=== PATIENT | female | born 1985 | race Caucasian/White ===

== ENCOUNTER 2020-05-07 13:01 | Emergency (ER) | payer MEDICARE, MEDICAID, SELFPAY ==
--- NOTE | ~2020-05-07 | XR_ITS ---
EXAMINATION: XR chest 1V portable INDICATION: Epigastric abdominal pain TECHNIQUE: Portable AP chest at 1531 hours COMPARISON: None available FINDINGS: The lungs are free of acute opacities. There is no pleural effusion or pneumothorax. The ca rdiomediastinal silhouette is normal. Tubing from a right internal jugular Port-A-Cath ends with its tip in the midsuperior vena cava. The chest wall portion of the port is not definitely seen. Cholecys tectomy clips are noted in the right upper quadrant. IMPRESSION: 1. No acute cardiopulmonary abnormality. Reviewed, dictated and finalized at location [facility]. [facility]
--- NOTE | ~2020-05-07 | CT_ITS ---
EXAMINATION: CT abdomen pelvis wo con DATE: 05/07/2020 16:28 INDICATION: Abdominal pain TECHNIQUE: Computed tomography (CT) of the abdomen and pelvis was performed without intravenous contr ast. Automated exposure control and iterative reconstruction technique were employed. The dose-length product was 774.85 mGy-cm. COMPARISON: None FINDINGS: Lung bases are clear. Heart size is normal. No pericardial or pleural effusion. Cholecystectomy clips the gallbladder fossa. Geographic bands of subcapsular decreased attenuation along the posterior mar gin of segment 6 of the liver and inferomedial margin of segment 5 of the liver most likely represent ing hepatic steatosis. Spleen, bilateral adrenal glands and kidneys are normal. There is dilation of the main pancreatic duct with multiple tiny foci of dystrophic calcification and atrophy of the surro unding pancreatic parenchyma consistent with sequela of chronic pancreatitis. There is an approximate ly 1.8 cm diameter nodular region of soft tissue density at the head of the pancreas likely represent ing residual spared pancreatic tissue. No surrounding inflammatory stranding to suggest ongoing acute interstitial pancreatitis. The appendix is not visualized. No pericecal inflammatory change to sugge st acute appendicitis. No bowel obstruction. Bladder, anteverted uterus and bilateral adnexa are unre markable. No free intraperitoneal gas or fluid. No pathologically enlarged abdominal or pelvic lympha denopathy. Multiple small nodular densities in the subcutaneous fat at the left and right anterolater al lower abdominal wall likely representing injection granulomata/scarring related to subcutaneous in jections. Correlate with clinical history. Bones are unremarkable. IMPRESSION: 1. No acute intra-abdominal/pelvic process. 2. Stigmata of chronic pancreatitis including parenchymal atrophy and dystrophic calcifications as we ll as dilation of the main pancreatic duct. A 1.8 cm nodular density at the region of the head of the pancreas likely represents peripancreatic tissue but would correlate with prior outside imaging to e xclude less likely pancreatic neoplasm. Could consider further evaluation with multiphase pre and pos tcontrast MRI of her given the relative paucity of an additional normal pancreatic parenchyma for com parison the most useful assessment would be for interval change related to prior imaging. Reviewed, dictated and finalized at location A. [employer] IMPRESSION: 1. No acute intra-abdominal/pelvic process. 2. Stigmata of chronic pancreatitis including parenchymal atrophy and dystrophi c calcifications as well as dilation of the main pancreatic duct. A 1.8 cm nodu lar density at the region of the head of the pancreas likely represents peripan creatic tissue but would correlate with prior outside imaging to exclude less l ikely pancreatic neoplasm. Could consider further evaluation with multiphase pr e and postcontrast MRI of her given the relative paucity of an additional lorena l pancreatic parenchyma for comparison the most useful assessment would be for interval change related to prior imaging.
--- NOTE | 2020-05-07 13:27 | ECG_ITS ---
Measurements Intervals [place] Rate: 81 P: 48 ID: [id number] QRS: 7 QRSD: 73 T: 19 QT: 364 QTc: 425 Interpretive Statements SINUS RHYTHM DELAYED PRECORDIAL R/S TRANSITION BORDERLINE ECG Electronically Signed On 05-07-2020 13:39:32 [employer]TAIN WAITER by Raymundo Monique D.O.
[2020-05-07 13:36] VITALS: BP 138/87; PULSE 85; RESP 16; TEMP 36.2; O2SAT 98
--- NOTE | 2020-05-07 13:40 | PC.NURSE ---
Patient walked up to intake desk without difficulty, asking how long she has to wait in the waiting room that her stomach was hurting. patient informed that we cannot give wait times for rooms but that her tests were in progress. Patient then states that she could pass out, patient then placed in wheelchair in the locked postion and told to let RN know prior to getting up or walking at all. patient sitting in wheelchair at this time in no distress.
[2020-05-07 13:58] LABS: Glucose Point of Care 369 (65-105)
[2020-05-07 14:02] LABS: Basophils Percent Auto 0.5 % (0.2-1.2); Eosinophils Percent Auto 0.7 % (0-4.4); Hematocrit 34.1 % (37.0-47.0); Hemoglobin 11.2 g/dL (12.0-15.0); Immature Granulocyte Absolute 0.01 K/mm3 (0.00-0.031); Immature Granulocyte Percent A 0.2 % (0-0.5); Lymphocytes Percent Auto 32.6 % (18.3-44.2); Mean Corpuscular HGB Conc 32.8 g/dl (32-36); Mean Corpuscular Hemoglobin 31.5 pg (26-34); Mean Corpuscular Volume 96.1 fl (80-100); Mean Platelet Volume 11.6 fl (7.4-10.4); Monocytes Absolute Auto 0.6 K/mm3 (0.1-0.6); Monocytes Percent Auto 9.6 % (2.6-8.5); Neutrophils Absolute Auto 3.3 K/mm3 (1.3-6.7); Neutrophils Percent Auto 56.4 % (45.5-73.1); Platelet Count Result 184 k/mm3 (150-375); Red Blood Count 3.55 M/mm3 (4.2-5.4); Red Cell Distribution Width 11.9 % (11.5-14.5); White Blood Count 5.8 K/mm3 (4.5-10.0)
[2020-05-07 14:06] LABS: Add Urine Microscopic? YES; Appearance Urine Clear (Clear); Bilirubin Urine Negative (Negative); Blood Urine Negative (Negative); Color Urine Straw (Yellow); Glucose Urine UA 3+ mg/dL (Negative); Ketones Urine Negative (Negative); Leukocyte Esterase Ur Negative LEU/UL (Negative); Nitrate Urine Negative (Negative); Protein Urine Negative (Negative); RBC Urine 0-2 /hpf (0-2); Specific Grav Ur 1.014 (1.001-1.035); Squamous Epithelial Cell Urine Rare /hpf (Few); Urobilinogen Urine Negative mg/dL (<2.0); WBC Urine 0-3 /hpf
[2020-05-07 14:14] LABS: Alanine Aminotransferase 23 U/L (4-35); Albumin Level 3.8 g/dL (3.5-5.1); Alkaline Phosphatase 116 U/L (38-126); Anion Gap 7 mmol/L (8-16); Aspartate Amino Transferase 24 U/L (14-36); Bilirubin,Total 0.2 mg/dL (0.2-1.3); Blood Urea Nitrogen 7 mg/dL (7-17); Calcium 9.1 mg/dL (8.4-10.2); Carbon Dioxide 25 mmol/L (22-30); Chloride 105 mmol/L (98-107); Estimated CRCL calculation 130 ml/min; Estimated Glomerular Filt Rate > 60; Glucose 378 mg/dL (65-105); Potassium 4.2 mmol/L (3.4-5.0); Sodium 137 mmol/L (137-145)
[2020-05-07 14:15] LABS: Lipase < 10 U/L (23-300)
[2020-05-07 15:31] VITALS: BP 151/91; PULSE 81; RESP 18; O2SAT 96
[2020-05-07 16:03] LABS: Magnesium 1.4 mg/dL (1.6-2.3); Phosphorus 2.5 mg/dL (2.5-4.5)
--- NOTE | 2020-05-07 16:10 | PC.NURSE ---
Spoke to Scott DAVIS. PT states she has port. Per Scott DAVIS okay to access port and use.
[2020-05-07 16:11] LABS: Beta-Hydroxybutyrate/Acetoacetate 0.09 mmol/L (0.02-0.27)
[2020-05-07 16:12] LABS: Base Excess ABG -1.4 mEq/l (+/-2.0); Carboxyhemoglobin 0.7 % THb (0-2.0); Device ROOM AIR; Fractional Inspired Oxygen 21 %; Methemoglobin ABG 0.3 %THb (0-1.5); Oxygen Content ABG 15.6 %vol (16.0-22.0); Oxygen Saturation ABG 96.9 % (95.0-100.0); Oxyhemoglobin 94.8 % THb (90.0-100.0); PCO2 ABG 37.5 mmHg (35.0-45.0); PO2 ABG 89.8 mmHg (80.0-100.0); PO2 FiO2 Ratio Arterial Blood 4.28 %; Reduced Hemoglobin 4.2 %THb (0-5.0); Site Drawn RIGHT BRACHIAL; Total Hemoglobin 11.6 g/dL (12.0-18.0); pH ABG 7.406 (7.350-7.450)
--- NOTE | 2020-05-07 16:15 | PC.NURSE ---
This RN to room with medications ordered by EDP. Pt states Tylenol thats it. I didn't come her to get tylenol! Can I atleast get something for pain. Pt requesting to talk to EDP. Scott DAVIS made aware.
--- NOTE | 2020-05-07 16:30 | PC.NURSE ---
RN to room pt continually pulling herself off of monitors pt aware she is suppose to keep them on so we can monitor her. Pt requesting pain medication. EDP aware
[2020-05-07 16:40] VITALS: BP 159/92; PULSE 73; RESP 18; O2SAT 96
[2020-05-07] MEDS: SODIUM CHLORIDE 0.9% IV 1,000 ML 999 ML IV CONT ×2 (17:00→18:14)
[2020-05-07] MEDS: METOCLOPRAMIDE HCL INJ 10 MG/2 ML VIAL IV PUSH (17:01)
[2020-05-07] MEDS: FAMOTIDINE 20 MG/2 ML VIAL IV PUSH (17:01)
--- NOTE | 2020-05-07 17:01 | PC.NURSE ---
RN to room with medications pt agreeable to medications now. PT states Can I atleast get some benadryl. Scott DAVIS aware no new orders at this time.
--- NOTE | 2020-05-07 17:30 | PC.NURSE ---
Pt calling RN to room. Upon entering room pt states Can you bring me my benadryl he finally ordered it.
--- NOTE | 2020-05-07 17:51 | ED.ABDPAIN ---
HPI - Abdominal Pain General Chief Complaint: Abdominal Pain Stated Complaint: abd pain n/v/d x1wk Time Seen by Provider: 05/07/20 15:49 Source: patient Mode of arrival: ambulatory Limitations: no limitations History of Present Illness HPI narrative: Patient is a 34-year-old female who presents to emergency department noting 3-4 loose stools per day with some cramping throughout the abdomen patient notes she was discharged from [facility] yesterday where she normally goes for her care with history of chronic pancreatitis and diabetes mellitus. Patient denies any URI symptoms nausea or vomiting. Patient is followed by GI and primary care at [facility]. Patient is new to the area and moved into a new assisted today. On arrival patient is nontoxic-appearing no distress. Patient with history of nausea vomiting diarrhea epigastric abdominal pain patient recently admitted managed by GI Dr. Smith patient had EGD which showed normal esophagus patient was managed with Protonix Carafate and discharged home with Percocet patient was to follow with PCP gastroenterology and endocrinology on an outpatient basis patient with also having had recent CAT scan of the abdomen and pelvis in the recent past. Patient has had frequent hospital visits and admissions to [facility] Related Data Home Medications Medication Instructions Recorded Confirmed insulin aspart U-100 [Novolog 20 unit SUBCUT TID 05/07/20 05/07/20 Flexpen U-100 Insulin] insulin glargine [Lantus U-100 43 unit SUBCUT BID 05/07/20 05/07/20 Insulin] lorazepam [Ativan] 0.5 mg PO TID 05/07/20 05/07/20 lurasidone [Latuda] 40 mg PO DAILY 05/07/20 05/07/20 metoprolol succinate 25 mg PO DAILY 05/07/20 05/07/20 Allergies Allergy/AdvReac Type Severity Reaction Status Date / Time atropine [From ] Allergy Hives Verified 05/07/20 15:27 dicyclomine [From Bentyl] Allergy Swelling Verified 05/07/20 15:27 droperidol Allergy Swelling Verified 05/07/20 15:27 hyoscyamine [From ] Allergy Hives Verified 05/07/20 15:27 ketorolac [From Toradol] Allergy Swelling Verified 05/07/20 15:27 ondansetron [From Zofran] Allergy Hives Verified 05/07/20 15:27 Penicillins Allergy Hives Verified 05/07/20 15:27 phenobarbital [From ] Allergy Hives Verified 05/07/20 15:27 scopolamine [From ] Allergy Hives Verified 05/07/20 15:27 morphine AdvReac Itching Verified 05/07/20 15:27 Review of Systems Review of Systems: All systems reviewed & are unremarkable except as noted in HPI and below PMFSH Past Medical History Medical History (Updated 05/07/20 @ 18:00 by Shin Fitzpatrick PA-C) Bipolar disorder Chronic pancreatitis Diabetes mellitus Hypertension MRSA (methicillin resistant Staphylococcus aureus) Osteomyelitis of left femur Surgical History Surgical History (Updated 05/07/20 @ 17:56 by Shin Fitzpatrick PA-C) H/O esophagogastroduodenoscopy Social History Social History (Updated 05/07/20 @ 17:58 by Shin Fitzpatrick PA-C) Smoking status: Never smoker Exam Narrative: Exam Narrative: GENERAL: Well-appearing, well-nourished, and in no acute distress. HEAD: Normocephalic, atraumatic. EYES: PERRLA and EOMI. ENT: Nares clear, no rhinorrhea or epistaxis. Mucous membranes moist. CHEST: Clear to auscultation. No respiratory distress. No wheezes rales or rhonchi HEART: Regular rate and rhythm. No murmur heard. Normal peripheral pulses. ABDOMEN: Soft, mild tenderness of the abdomen no rebound or guarding, nondistended, normal active bowel sounds. EXTREMITIES: Normal range of motion. No edema. SKIN: Warm, dry, no rash. Wound to the left moise with wound care dressings in place no cellulitic changes NEURO: No focal deficits. Alert and oriented x3. PSYCH: Normal mood and affect. Course Course Emergency Course: Patient hydrated and evaluated the emergency department prior to patient's disposition she decided to sign out AMA her sugar is still around 400 was a
--- NOTE | 2020-05-07 18:00 | PC.NURSE ---
Pt called RN to room upon this RN entering room pt was standing at bedside. She had let the siderail of her bed down and pulled all her monitors off. Pt states Can I please get something for my pain. Pt assisted back to bed and pt aware she is not to get up without assistance. Pt placed back on monitors. RN to speak to Scott DAVIS.
[2020-05-07] MEDS: MAGNESIUM SULF 2 GM/WATER 50ML 2 GM/50 ML BAG IVPB (18:14)
[2020-05-07] MEDS: diphenhydrAMINE HCl INJ 50 MG/ML VIAL 25 MG IV PUSH (18:14)
[2020-05-07] MEDS: INSULIN HUMAN REGULAR (*BKC) 100 UNITS/ML 10 UNITS IV PUSH (18:14)
[2020-05-07 18:20] VITALS: BP 145/57; PULSE 63; RESP 20; O2SAT 97
--- NOTE | 2020-05-07 18:25 | PC.NURSE ---
Pt called RN to room. PT states she would like to leave at this time. RN to speak with Scott DAVIS
[2020-05-07 18:30] LABS: Glucose Point of Care 398 (65-105)
[2020-05-07] MEDS: HEPARIN SOD FLUSH 500 UNITS/5 ML SYRINGE (18:40)
== END 2020-05-07 18:40 | disposition left against medical advice (07) ==
PROVIDERS: Emergency Medicine; Emergency Medicine Emergency Medical Services; Emergency Provider Emergency Medicine; PCP Internal Medicine
DX: R19.7 Diarrhea, unspecified (principal); R10.9 Unspecified abdominal pain; E11.65 Type 2 diabetes mellitus with hyperglycemia; K86.1 Other chronic pancreatitis; I10 Essential (primary) hypertension; Z86.14 Personal history of Methicillin resistant Staphylococcus aureus infection; F31.9 Bipolar disorder, unspecified; Z79.4 Long term (current) use of insulin; R94.31 Abnormal electrocardiogram [ECG] [EKG]
CPT/HCPCS: 36415; 36600; 71045; 74176; 80053; 81001; 81025; 82010; 82375; 82805; 82948; 83050; 83690; 83735; 84100; 85025; 93005; 96365; 96367; 96375; 99284; J0131; J1200; J1815; J2765; J3475; J7030